=== PATIENT | female | born 1930 | race Caucasian/White ===

== ENCOUNTER 2017-07-22 19:00 | Inpatient (IN) | payer MEDICARE, OTHER ==
[~2017-07-22] VITALS: Ht 157.5 cm; Wt 68.0 kg
[~2017-07-22 19:00] MED LIST: ALEN70TA30 PO; BENA5TAB2 PO; KETO75CA PO; MECL12.568 PO; METF500T4 PO; METH500T8 PO; METO-429 PO; OMEP20CA16 PO
[2017-07-22 19:08] VITALS: Ht 157.5 cm; Wt 68.0 kg
[2017-07-22] MEDS ORDERED: SOD CHLORIDE 0.9% 1,000 ML IV STA (19:37)
--- NOTE | 2017-07-22 20:00 | ERA ---
ER Documentation Chief Complaint Date/Time DATE: 07/22/17 TIME: 19:59 Chief Complaint DIZZINESS X 2 DAYS, HEADACHE, DENIES N/V, PER DAUGHTER ELEV BLOOD GLUCOSE HPI This is an 86-year-old female history of ono-ewadjsq-nshruovek diabetes who presents with multiple complaints over the last 48 hours. Daughter describes that the patient is describing dizziness. She describes it as the patient having ataxic gait and feeling weak and almost collapsing over the last 48 hours. She denies any vertigo. No chest pain or shortness of breath. The patient does describe some clumsiness of the right hand. She denies any fevers chills chest pain or shortness of breath. Glucose values have been elevated. ROS All systems reviewed and are negative except as per history of present illness. Medications Home Meds Reported Medications Ketoprofen (Ketoprofen) 75 Mg Capsule, 75 MG PO BID 01/28/12 Methocarbamol* (Methocarbamol*) 500 Mg Tablet, 500 MG PO BID Y 01/28/12 Meclizine Hcl (Meclizine Hcl) 12.5 Mg Tablet, 12.5 MG PO Q8 Y PRN Q8 HRS FOR DIZZINES 01/28/12 Metoprolol Tartrate* (Lopressor*) 50 Mg Tablet, 50 MG PO BID 01/28/12 Alendronate Sodium* (Fosamax*) 70 Mg Tablet, 70 MG PO QWEEKLY 01/28/12 Benazepril Hcl* (Benazepril Hcl*) 5 Mg Tablet, 5 MG PO HS 01/28/12 Omeprazole* (Omeprazole*) 20 Mg Capsule.dr, 20 MG PO DAILY 01/28/12 Metformin* (Glucophage*) 500 Mg Tab, 500 MG PO DAILY 01/28/12 Allergies Allergies: Coded Allergies: No Known Allergy (Unverified , 01/28/12) NKA/NOR/RN MS3 01/27 1257 PMhx/Soc Hx Substance Use: No FmHx Family History: No diabetes Physical Exam Vitals Vital Signs Date Time Temp Pulse Resp B/P Pulse Ox O2 Delivery O2 Flow Rate FiO2 07/22/17 19:08 99.0 79 18 172/77 95 Physical Exam General: Well developed, well nourished, no acute distress Head: Normocephalic, atraumatic Eyes: Pupils equally reactive, EOM intact ENT: Moist mucous membranes Neck: Supple, no lymphadenopathy Respiratory: Lungs clear bilaterally, no distress Cardiovascular: RRR, no murmurs, rubs, or gallops Abdominal: Soft, non-tender, non-distended, no peritoneal signs : Deferred MSK: No edema, no unilateral swelling, 5/5 strength Neurologic: Alert and oriented, moving all extremities, normal speech, no focal weakness, no cerebellar signs, normal rapid alternating movements Skin: No rash Psych: Normal mood Result Diagram: 07/22/17195507/22/171955 Results 24 hrs Laboratory Tests Test 07/22/17 19:15 07/22/17 19:53 07/22/17 19:56 07/22/17 20:27 Bedside Glucose 119mg/dL 128mg/dL White Blood Count 8.010^3/ul Red Blood Count 4.5310^6/ul Hemoglobin 13.6g/dl Hematocrit 41.1% Mean Corpuscular Volume 90.7fl Mean Corpuscular Hemoglobin 30.0pg Mean Corpuscular Hemoglobin Concent 33.1g/dl Red Cell Distribution Width 14.0% Platelet Count 05115^3/UL Mean Platelet Volume 12.4fl Neutrophils % 47.9% Lymphocytes % 41.2% Monocytes % 8.7% Eosinophils % 1.8% Basophils % 0.3% Nucleated Red Blood Cells % 0.0/100WBC Neutrophils # 3.810^3/ul Lymphocytes # 3.310^3/ul Monocytes # 0.710^3/ul Eosinophils # 0.110^3/ul Basophils # 0.010^3/ul Nucleated Red Blood Cells # 0.010^3/ul Sodium Level 138mmol/L Potassium Level 4.2mmol/L Chloride Level 102mmol/L Carbon Dioxide Level 29mmol/L Anion Gap 11 Blood Urea Nitrogen 16mg/dl Creatinine 0.62mg/dl Glucose Level 110mg/dl Hemoglobin A1c 6.5% Calcium Level 9.0mg/dl Troponin I < 0.012ng/ml Urine Opiates Screen Negative Urine Barbiturates Negative Urine Amphetamines Screen Negative Urine Benzodiazepines Screen Negative Urine Cocaine Screen Negative Urine Cannabinoids Negative Current Medications Medications (Trade) Dose Ordered Sig/Brain Route PRN Reason Start Time Stop Time Status Last Admin Dose Admin Sodium Chloride (NS) 1,000 ml @ 1,000 mls/hr Q1H STAT IV 07/22/17 19:37 07/22/17 20:36 DC 07/22/17 20:22 Ondansetron HCl (Zofran Inj) 4 mg ER BRIDGE PRN IV NAUSEA AND/OR VOMITING 07/22/17 21:30 07/23/17 21:29 Acetaminophen (Tylenol Tab) 650 mg ER BRIDGE PRN PO MILD PAIN/FEVER 07/22/17 21:30 07/23/17 21:29 Procedures/MDM EKG, MONITORS, & DIAGNOSTIC IMAGING: EKG: I reviewed and interpreted a 12-lead EKG. Rhythm: Normal sinus rhythm Ectopy: None Intervals: No abnormalities ST segments: No elevations or depressions T waves: No contiguous inversions Chest x-ray: I reviewed and interpreted a 1 view of the chest Mediastinum: No enlargement Cardiac silhouette: No cardiomegaly Airspace: Clear lung hines bilaterally without evidence of pneumothorax Bones: No evidence of fracture CT brain: IMPRESSION: 1. No acute intracranial abnormality. No intracranial hemorrhage, extra-axial fluid collection, mass lesion or hydrocephalous. 2. Mild peripheral and central cerebral volume loss. 3. Mild periventricular and subcortical white matter hypodensity, likely related to chronic microangiopathic changes. 4. No CT evidence of infarct at this time. If clinical concern for infarct, MRI is recommended for further evaluation. RPTAT: HGAS LAB INTERPRETATION: No leukocytosis, negative troponin MEDICAL DECISION MAKING: The patient presents with ataxia, clumsiness of the right hand for 48 hours. This is concerning for possible subacute stroke. The patient also has hyperglycemia. The patient will benefit from laboratory testing, CT imaging and inpatient hospitalization for further workup and evaluation of potential stroke. MRI brain indicated. ER COURSE: The patient continues to be well-appearing and asymptomatic here in the emergency room. Her CT imaging is negative. The patient's EKG and troponin are negative. Electrolytes are normal. No evidence of DKA. Inpatient hospitalization for further management would be appropriate. Aspirin provided. I kept the patient and/or family informed of laboratory and diagnostic imaging results throughout the emergency room course. DISPOSITION PLAN: Telemetry admission for management and evaluation of potential stroke CONSULTATION: Accepting care team and consultations: I discussed the current laboratory data, diagnostic imaging and emergency care provided. Admitting team: Dr Haynes Admitting team indication: Insurance directed Departure Diagnosis: Primary Impression: Ataxia Additional Impression: Generalized weakness Condition: Stable ZOILA OLIVIER MD Jul 22, 2017 20:00
[2017-07-22 20:33] LABS: BASOPHILS % 0.3 % (0.0-2.0); EOSINOPHILS # 0.1 10^3/ul (0.0-0.5); EOSINOPHILS % 1.8 % (0.0-7.0); HEMATOCRIT 41.1 % (37.0-47.0); HEMOGLOBIN 13.6 g/dl (12.0-16.0); LYMPHOCYTES # 3.3 10^3/ul (0.8-2.9); LYMPHOCYTES % 41.2 % (15.0-51.0); MEAN CORPUSCULAR HGB CONC 33.1 g/dl (32.0-37.0); MEAN CORPUSCULAR VOLUME 90.7 fl (82.0-101.0); MEAN PLATELET VOLUME 12.4 fl (7.4-10.4); MONOCYTE # 0.7 10^3/ul (0.3-0.9); MONOCYTES % 8.7 % (0.0-11.0); NEUTROPHIL # 3.8 10^3/ul (1.6-7.5); NEUTROPHILS % 47.9 % (39.0-77.0); PLATELET COUNT 145 10^3/UL (140-415); RED BLOOD COUNT 4.53 10^6/ul (4.20-5.40)
--- NOTE | 2017-07-22 20:47 | RADRPT ---
AMENDMENT: 07/22/2017 8:50:39 PM Earl Luna M.D Addendum: The above findings were discussed with Patient's physician Vidal Matute by telephone on 07/22/20 8:49:29 PM. PROCEDURE: CT Head without. CLINICAL INDICATION: Possible stroke. TECHNIQUE: The study was performed utilizing a multi-slice, multidetector CT scanner. Direct spira l 1 mm axial sections were obtained through the head without the use of intravenous contrast materia l. 1 or more of the following dose reduction techniques were utilized: Automated exposure control, adjustment of the mA and/or kV according to patient's size, iterative reconstruction technique. Co lorrie and sagittal reformations were obtained. The images were reviewed on a PACS workstation. RADIATION DOSE: CTDIvol: 44.6 mGyDLP: 720.2 mGy-cm COMPARISON: No prior studies are available for comparison. FINDINGS: There is no intracranial hemorrhage, extra-axial fluid collection, mass lesion, midline shift or hyd rocephalus. There is mild prominence of the cerebral sulci, lateral and third ventricles. There is mild periventricular and subcortical white matter hypodensity. There is mild arteriosclerotic calc ification of the parasellar internal carotid arteries. There is pneumatization of the bilateral pet israel apices without evidence of inflammatory changes, normal variant. The rowley-white matter differen tiation is preserved. The basal cisterns are patent. The midline structures are intact. The orbit s, calvarium and extracranial soft tissues are normal in appearance. The visualized paranasal sinuse s, mastoid air cells and middle ear cavities are normally aerated. IMPRESSION: 1. No acute intracranial abnormality. No intracranial hemorrhage, extra-axial fluid collection, ma ss lesion or hydrocephalous. 2. Mild peripheral and central cerebral volume loss. 3. Mild periventricular and subcortical white matter hypodensity, likely related to chronic microan giopathic changes. 4. No CT evidence of infarct at this time. If clinical concern for infarct, MRI is recommended for further evaluation. RPTAT: HGAS .Thor Luna MD, MD Date Time Electronically viewed and signed by .Thor Luna MD, on 07/22/2017 20:50 .S/
--- NOTE | 2017-07-22 20:47 | RADRPT ---
PROCEDURE: XR Chest. CLINICAL INDICATION: Possible stroke. TECHNIQUE: AP portable views of the chest were obtained. COMPARISON: None available FINDINGS: The cardiomediastinal silhouette is within normal limits. There is moderate atherosclerosis of the t horacic aorta without evidence of aneurysm formation. The lungs are clear. No signs of pleural flui d or pneumothorax are seen. There are mild degenerative changes of the thoracic spine. The vertebra l body heights are maintained. The soft tissues are unremarkable. IMPRESSION: 1. No evidence for active cardiopulmonary disease. 2. Mild atherosclerosis of the thoracic aorta. RPTAT: HGAS .Thor Luna MD, MD Date Time Electronically viewed and signed by .Thor Luna MD, MD on 07/22/2017 20:47 .S/
[2017-07-22 20:54] LABS: ANION GAP 11 (8-16); BLOOD UREA NITROGEN 16 mg/dl (7-20); CARBON DIOXIDE 29 mmol/L (21-31); CHLORIDE 102 mmol/L (97-110); CREATININE 0.62 mg/dl (0.44-1.00); GLUCOSE 110 mg/dl (70-220); POTASSIUM 4.2 mmol/L (3.5-5.1); SODIUM 138 mmol/L (135-144)
[2017-07-22 21:06] LABS: TROPONIN-I < 0.012 ng/ml (0.00-0.12)
[2017-07-22 21:08] LABS: BARBITURATES Negative (NEGATIVE); BENZODIAZEPINES Negative (NEGATIVE); CANNABINOIDS Negative (NEGATIVE); COCAINE Negative (NEGATIVE); OPIATES Negative (NEGATIVE)
[2017-07-22 21:20] LABS: ADD UMIC YES; UR AMORPHOUS CRYSTAL FEW /HPF (NONE SEEN); UR ASCORBIC ACID NEGATIVE (NEGATIVE); UR BACTERIA FEW /HPF (NONE SEEN); UR BILIRUBIN (Dip) NEGATIVE (NEGATIVE); UR BLOOD (Dip) NEGATIVE (NEGATIVE); UR CLARITY SLIGHTLY CLOUDY (CLEAR); UR COLOR YELLOW (YELLOW); UR GLUCOSE (Dip) NEGATIVE (NEGATIVE); UR KETONES (Dip) NEGATIVE (NEGATIVE); UR LEUKOCYTE ESTERASE (Dip) 3+ Leu/ul (NEGATIVE); UR MUCUS FEW /HPF (NONE SEEN); UR NITRITE (Dip) NEGATIVE (NEGATIVE); UR RBC 2 /HPF (0-5); UR SPECIFIC GRAVITY (Dip) 1.009 (1.003-1.030); UR SQUAMOUS EPITHELIAL CELL FEW /HPF (FEW); UR TOTAL PROTEIN (Dip) NEGATIVE (NEGATIVE); UR UROBILINOGEN (Dip) NEGATIVE (NEGATIVE)
[2017-07-22] MEDS ORDERED: ASPIRIN 81 MG TAB PO ONE (21:30)
[2017-07-22] MEDS ORDERED: ONDANSETRON 4 MG INJ IV PRN (21:30)
[2017-07-22] MEDS ORDERED: ACETAMINOPHEN 325 MG TAB PO PRN (21:30)
[2017-07-22 21:38] LABS: PARTIAL THROMBOPLASTIN TIME 27.4 Sec (25.0-35.0)
[2017-07-22] MEDS ORDERED: CEPHALEXIN 500 MG CAP PO ONE (22:00)
[2017-07-22 22:10] LABS: INR 1.09; PROTIME 14.1 Sec (12.2-14.2); PT RATIO 1.1
[2017-07-22] MEDS ORDERED: ALPR0.254 PO (22:11)
[2017-07-22] MEDS ORDERED: BACI1CAP6 PO (22:11)
[2017-07-22] MEDS ORDERED: ZOLP5TAB7 PO (22:11)
[2017-07-22] MEDS ORDERED: MULT-853 PO (22:11)
[2017-07-22] MEDS ORDERED: DEXTROSE 50% 50 ML SYRINGE IV PRN ×2 (23:30)
[2017-07-22] MEDS ORDERED: GLUCAGON 1 MG INJ IM PRN (23:30)
[2017-07-22] MEDS ORDERED: GLUCOSE GEL 15 GRAM TUBE PO PRN ×2 (23:30)
[2017-07-22] MEDS ORDERED: GLUCOSE GEL 15 GRAM TUBE BUCCAL PRN (23:30)
[2017-07-22 23:33] VITALS: BP 159/72; RESP 18
[2017-07-23] VITALS (12 sets, daily range): BP systolic 127–143; BP diastolic 64–73; PULSE 71–79; RESP 18–19
[2017-07-23] MEDS ORDERED: ACCU-CHEK XX SCH (02:00)
[2017-07-23] MEDS: ACCU-CHEK XX SCH (02:00)
[2017-07-23] MEDS: INSULIN ASPART [NOVOLOG] 3 ML PEN SC SCH ×4 (08:00→20:41)
[2017-07-23 08:16] LABS: BASOPHILS % 0.5 % (0.0-2.0); EOSINOPHILS # 0.1 10^3/ul (0.0-0.5); HEMATOCRIT 42.7 % (37.0-47.0); HEMOGLOBIN 13.7 g/dl (12.0-16.0); LYMPHOCYTES % 45.6 % (15.0-51.0); MEAN CORPUSCULAR HEMOGLOBIN 29.3 pg (29.0-33.0); MEAN CORPUSCULAR HGB CONC 32.1 g/dl (32.0-37.0); MEAN CORPUSCULAR VOLUME 91.4 fl (82.0-101.0); MEAN PLATELET VOLUME 11.6 fl (7.4-10.4); MONOCYTE # 0.6 10^3/ul (0.3-0.9); MONOCYTES % 8.4 % (0.0-11.0); NEUTROPHIL # 2.9 10^3/ul (1.6-7.5); NEUTROPHILS % 43.3 % (39.0-77.0); PLATELET COUNT 145 10^3/UL (140-415); RED BLOOD COUNT 4.67 10^6/ul (4.20-5.40); RED CELL DISTRIBUTION WIDTH 13.8 % (11.5-14.5); WHITE BLOOD COUNT 6.6 10^3/ul (4.8-10.8)
[2017-07-23 08:32] LABS: CALCIUM 8.7 mg/dl (8.4-10.2); CHOL/HDL RATIO 5.3 RATIO; CREATININE 0.6 mg/dl (0.44-1.00); POTASSIUM 4.4 mmol/L (3.5-5.1)
[2017-07-23] MEDS: HEPARIN 5,000 UNIT/0.5 ML VIAL SC SCH ×2 (09:27→20:49)
[2017-07-23] MEDS: ASPIRIN 81 MG TAB PO SCH (09:27)
[2017-07-23] MEDS ORDERED: ZOLPIDEM 5 MG TAB PO PRN (10:00)
[2017-07-23] MEDS ORDERED: MECLIZINE 12.5 MG TAB PO PRN (10:00)
--- NOTE | 2017-07-23 10:28 | HP ---
Date/Time of Note Date/Time of Note DATE: 07/23/17 TIME: 10:20 Assessment/Plan VTE Prophylaxis VTE Prophylaxis Intervention: heparin Lines/Catheters IV [facility]from [facility] Saline Lock Urinary Cath still in place: No Assessment/Plan Assessment/Plan 1. Generalized weakness -Currently this appears to have resolved because of my physical examination patient has 5 out of 5 strength in both upper and lower extremities and there was no decreased sensation that I noted. Of note patient did report her right hand was more weaker than the rest of her extremities but I did not appreciate that on my physical exam. -Plan is to rule out stroke. Obtain MRI of the brain and 2D echo. Given carotid Doppler ultrasound from 2011 that showed no hemodynamically significant stenosis, I will not repeat at this point. Additional imaging was CT or MR angiogram of the head and neck as needed - She will be placed on aspirin, statin -Physical therapy evaluation 2. Hypertension -Continue home medications adjustment as needed 3. Type 2 diabetes -Insulin while in-house HPI/ROS Admit Date/Time Admit Date/Time Jul 22, 2017 at 21:13 Hx of Present Illness This is an 86-year-old female with a history of hypertension and diabetes who was brought to the ER for generalized weakness. Patient is accompanied by her daughter who was at the bedside and provided history. Per daughter, patient's have been able to take care of herself and was fully independent until 2 days ago. About 2 days ago, patient started complaining of feeling weak and had difficulty with walking requiring assistance. She said her weakness is generalized, including both bilateral upper and bilateral lower extremities. On further questioning however, she did report her right hand was more numb and weak as compared to the rest of her extremities. Did report some headache but denied visual disturbance, chest pain, shortness of breath, lightheadedness, seizure-like activity. When she presented to the ER, head CT was negative for any acute processes. Basic labs within acceptable range and blood pressure was not severely elevated upon presentation. Of note patient was admitted here for altered mentation in 2011 and at that time she had an MRI of the brain which was normal and carotid Doppler ultrasound was also without hemodynamically significant stenosis. PMH/Family/Social Social History Smoking Status: Never smoker Exam/Review of Systems Vital Signs Vitals Vital Signs Date Time Temp Pulse Resp B/P Pulse Ox O2 Delivery O2 Flow Rate FiO2 07/23/17 08:43 74 07/23/17 08:00 97.8 18 143/72 92 07/22/17 21:00 Room Air Intake and Output 07/22/17 07/22/17 07/23/17 15:00 23:00 07:00 Intake Total 500 ml Balance 500 ml Exam Constitutional: alert, oriented, well developed Head: atraumatic, normocephalic Eyes: EOMI, PERRL Respiratory: clear to auscultation, normal air movement Cardiovascular: nl pulses, regular rate and rhythm Gastrointestinal: non-tender, soft Extremities: normal pulses Neurological: nl speech, nl strength Labs Result Diagram: 07/23/17 0645 07/23/17 0645 Medications Medications Current Medications Aspirin (Aspirin) 81 mg DAILY PO Last administered on 07/23/17 09:27; Admin Dose 81 MG; Start 07/23/17 at 09:00 Diagnostic Test (Pha) (Accu-Chek) 1 ea 02 XX ; Start 07/23/17 at 02:00 Insulin Glargine (Lantus) 10 unit QHS SC ; Start 07/23/17 at 21:00 Heparin Sodium (Porcine) (Heparin (5000 Units/0.5 ml)) 5,000 unit Q12 SC Last administered on 07/23/17 09:27; Admin Dose 5,000 UNIT; Start 07/23/17 at 09:00 Miscellaneous Information 1 ea NOTE XX ; Start 07/22/17 at 23:30 Glucose (Glutose) 15 gm Q15M PRN PO DECREASED GLUCOSE; Start 07/22/17 at 23:30 Glucose (Glutose) 22.5 gm Q15M PRN PO DECREASED GLUCOSE; Start 07/22/17 at 23: 30 Dextrose (D50w Syringe) 25 ml Q15M PRN IV DECREASED GLUCOSE; Start 07/22/17 at 23:30 Dextrose (D50w Syringe) 50 ml Q15M PRN IV DECREASED GLUCOSE; Start 07/22/17 at 23:30 Glucagon (Glucagen) 1 mg Q15M PRN IM DECREASED GLUCOSE; Start 07/22/17 at 23:30 Glucose (Glutose) 15 gm Q15M PRN BUCCAL DECREASED GLUCOSE; Start 07/22/17 at 23 :30 Alprazolam (Xanax) 0.25 mg Q12 PO ; Start 07/23/17 at 21:00 Benazepril HCl (Lotensin) 5 mg HS PO ; Start 07/23/17 at 21:00 Meclizine HCl (Antivert) 12.5 mg Q8H PRN PO vertigo; Start 07/23/17 at 10:00 Metoprolol Tartrate (Lopressor) 50 mg BID PO ; Start 07/23/17 at 21:00 Zolpidem Tartrate (Ambien) 5 mg QHS PRN PO INSOMNIA; Start 07/23/17 at 10:00 Atorvastatin Calcium (Lipitor) 40 mg HS PO ; Start 07/23/17 at 21:00 ANGEL MCNAIR MD Jul 23, 2017 10:28
--- NOTE | 2017-07-23 14:36 | RADRPT ---
Echocardiogram Report Patient Name: STEPHON THOMPSON Gender: Female Date: 1930 Study Date: 23-Jul-2017 Cephalometric Technician: Oren Hartman [facility] Location: [id number] Ref. Physician: ANGEL MCNAIR Quality: Technically Difficult Study Procedures: Transthoracic echocardiogram with complete 2D, M-Mode, and doppler examination. Indications: weakness. 2D/M Mode Doppler Measurement Value Normal Ranges Measurement Value Normal Ranges LVIDd 2D 3.9 3.5 - 5.6 cm AV Peak Harry 1.7 m/sec LVIDs 2D 2.6 2.1 - 4.1 cm AV Peak PG 12.0 mmHg FS 2D 33.7 % LVOT Peak Harry 1.0 m/sec LVPWd 2D 1.1 0.6 - 1.1 cm LVOT Peak PG 4.0 mmHg IVSd 2D 1.1 0.6 - 1.1 cm MV E Peak Harry 0.6 m/sec IVS/LVPW 2D 1.0 MV A Peak Harry 1.0 m/sec AoR Diam 2D 2.5 2.0 - 3.7 cm MV E/A 0.6 LA/Ao 2D 1 0 - 1 MV Decel Time 289 msec EDV 2D 57.5 cm3 MV E/A 0.6 ESV 2D 16.8 cm3 TR Peak Harry 2.6 m/sec LA Dimen 2D 2.9 2.3 - 4.0 cm TR Peak PG 28.0 mmHg RVSP 32.0 mmHg Findings Left Ventricle: Normal left ventricular systolic function. Normal left ventricular cavity size. Mild concentric left ventricular hypertrophy. Ejection fraction is visually estimated at 6065 %. Tissue Doppler/Mitral Doppler indices are consistent with impaired relaxation (Stage I diastolic dysfunction). Right Ventricle: Normal right ventricular size. Normal right ventricular systolic function. Left Atrium: The left atrium is normal in size. Right Atrium: The right atrium is normal in size. Mitral Valve: Normal appearance and function of the mitral valve with trace physiologic regurgitation. Aortic Valve: No significant aortic stenosis or insufficiency. Aortic cusps appear mildly calcified. Tricuspid Valve: Normal appearance of the tricuspid valve. Estimated peak PA systolic pressure 32 mmHg. There is mild tricuspid regurgitation. Pulmonic Valve: Normal pulmonic valve appearance. Pericardium: Normal pericardium with no significant pericardial effusion. Aorta: Normal aortic root. IVC: Normal size and normal respiratory collapse consistent with normal right atrial pressure. Conclusions 1.The left ventricle is normal in size and systolic function. 2.Estimated left ventricular ejection fraction of 60-65%. 3.Mild concentric left ventricular hypertrophy. Grade 1 diastolic dysfunction. Electronically Signed By: Bobby Magallon 23-Jul-2017 14:35:33 -0700 Patient Name: STEPHON THOMPSON Study Date: 23-Jul-2017 [id number]
--- NOTE | 2017-07-23 15:28 | RADRPT ---
PROCEDURE: MRI Brain without contrast. CLINICAL INDICATION: Ataxia, weakness. TECHNIQUE: An MRI of the brain was performed utilizing the following sequences: Sagittal and axial T1 weighted, axial T2 weighted, axial diffusion weighted with ADC mapping, coronal GRE, and axial F LAIR. COMPARISON: Brain CT 07/22/2017. FINDINGS: No diffusion weighted abnormalities are seen to suggest the presence of acute ischemia or recent inf arct. No hypointense signal abnormalities are seen on the GRE images to suggest the presence of blo od degradation products. There is no evidence of intracranial hemorrhage, mass effect, or midline s hift. No extra-axial fluid collections are seen. The ventricles and sulci are mildly to moderately e nlarged indicative of volume loss. There are mild foci of T2 FLAIR hyperintensity in the periventricular, deep, and subcortical white m atter, which are nonspecific in etiology but likely reflect chronic small vessel ischemic changes. No abnormal intracranial vascular flow void is noted. The visualized paranasal sinuses demonstrate m ild scattered mucosal thickening or pronounced in ethmoid air cells and maxillary sinuses. There is thinning of bilateral lens indicative of prior lens replacement. IMPRESSION: 1. No acute intracranial hemorrhage, infarction or mass. 2. Mild chronic small vessel ischemic changes. 3. Mild to moderate generalized cerebral volume loss. RPTAT: HH .Jennifer Anglin MD, Date Time Electronically viewed and signed by .Jennifer Anglin MD, MD on 07/23/2017 15:28 .N/
--- NOTE | 2017-07-23 15:30 | PN ---
Date/Time of Note Date/Time of Note DATE: 07/23/17 TIME: 15:24 Assessment/Plan Lines/Catheters IV [facility] Saline Lock Urinary Cath still in place: No Assessment/Plan Chief Complaint/Hosp Course Assessment and plan 1. Reported weakness. MRI of the brain is pending. Rule out CVA. Follow-up on 2D echo. Of note patient did have carotid Doppler ultrasound done on 2011 that showed no hemodynamically significant stenosis. Will monitor for now. Continue on antiplatelet and statin medication. Physical therapy to follow. Neurologist follow-up as well. 2. Essential hypertension. Continue antihypertensives and adjust needed. 3. Diabetes. Continue insulin regimen. Disposition and plan. Physical therapy to follow. Follow-up on brain imaging. Neurologist to follow as well. Discussed plan with Problems: Subjective 24 Hr Interval Summary Free Text/Dictation less reported weakness on right upper extremity. Exam/Review of Systems Vital Signs Vitals Vital Signs Date Time Temp Pulse Resp B/P Pulse Ox O2 Delivery O2 Flow Rate FiO2 07/23/17 12:00 79 07/23/17 11:57 97.9 18 130/69 97 07/22/17 21:00 Room Air Intake and Output 07/22/17 07/22/17 07/23/17 15:00 23:00 07:00 Intake Total 500 ml Balance 500 ml Exam Constitutional: alert, oriented Psych: anxiety Respiratory: clear to auscultation, normal air movement Cardiovascular: regular rate and rhythm Gastrointestinal: non-tender, soft Musculoskeletal: other (pain on palpation of bilateral lower extremities. patient reports hx arthritis ) Neurological: WIRE BASKET [employer]KER II-XII intact, nl mental status, nl speech Skin: nl turgor Results Result Diagram: 07/23/17 0645 07/23/17 0645 Results 24 hrs Laboratory Tests Test 07/22/17 19:15 07/22/17 19:53 07/22/17 19:56 07/22/17 20:27 Bedside Glucose 119 128 White Blood Count 8.0 Red Blood Count 4.53 Hemoglobin 13.6 Hematocrit 41.1 Mean Corpuscular Volume 90.7 Mean Corpuscular Hemoglobin 30.0 Mean Corpuscular Hemoglobin Concent 33.1 Red Cell Distribution Width 14.0 Platelet Count 145 Mean Platelet Volume 12.4 H Neutrophils % 47.9 Lymphocytes % 41.2 Monocytes % 8.7 Eosinophils % 1.8 Basophils % 0.3 Nucleated Red Blood Cells % 0.0 Neutrophils # 3.8 Lymphocytes # 3.3 H Monocytes # 0.7 Eosinophils # 0.1 Basophils # 0.0 Nucleated Red Blood Cells # 0.0 Sodium Level 138 Potassium Level 4.2 Chloride Level 102 Carbon Dioxide Level 29 Anion Gap 11 Blood Urea Nitrogen 16 Creatinine 0.62 Glucose Level 110 Hemoglobin A1c 6.5 H Calcium Level 9.0 Troponin I < 0.012 Urine Color YELLOW Urine Clarity SLIGHTLY CLOUDY A Urine pH 8.0 Urine Specific Faison 1.009 Urine Ketones NEGATIVE Urine Nitrite NEGATIVE Urine Bilirubin NEGATIVE Urine Urobilinogen NEGATIVE Urine Leukocyte Esterase 3+ H Urine Microscopic RBC 2 Urine Microscopic WBC 75 H Urine Squamous Epithelial Cells FEW Urine Amorphous Crystals FEW A Urine Bacteria FEW A Urine Mucus FEW A Urine Hemoglobin NEGATIVE Urine Glucose NEGATIVE Urine Total Protein NEGATIVE Urine Opiates Screen Negative Urine Barbiturates Negative Urine Amphetamines Screen Negative Urine Benzodiazepines Screen Negative Urine Cocaine Screen Negative Urine Cannabinoids Negative Test 07/22/17 20:50 07/23/17 02:02 07/23/17 06:45 07/23/17 08:02 Prothrombin Time 14.1 Prothrombin Time Ratio 1.1 INR International Normalized Ratio 1.09 Activated Partial Thromboplast Time 27.4 Bedside Glucose 140 119 White Blood Count 6.6 Red Blood Count 4.67 Hemoglobin 13.7 Hematocrit 42.7 Mean Corpuscular Volume 91.4 Mean Corpuscular Hemoglobin 29.3 Mean Corpuscular Hemoglobin Concent 32.1 Red Cell Distribution Width 13.8 Platelet Count 145 Mean Platelet Volume 11.6 H Neutrophils % 43.3 Lymphocytes % 45.6 Monocytes % 8.4 Eosinophils % 2.0 Basophils % 0.5 Nucleated Red Blood Cells % 0.0 Neutrophils # 2.9 Lymphocytes # 3.0 H Monocytes # 0.6 Eosinophils # 0.1 Basophils # 0.0 Nucleated Red Blood Cells # 0.0 Sodium Level 140 Potassium Level 4.4 Chloride Level 106 Carbon Dioxide Level 27 Anion Gap 11 Blood Urea Nitrogen 15 Creatinine 0.60 Glucose Level 110 Hemoglobin A1c 6.4 H Calcium Level 8.7 Triglycerides Level 210 H Cholesterol Level 165 LDL Cholesterol, Calculated 92 HDL Cholesterol 31 L Cholesterol/HDL Ratio 5.3 Test 07/23/17 12:11 Bedside Glucose 112 Medications Medications Current Medications Aspirin (Aspirin) 81 mg DAILY PO Last administered on 07/23/17 09:27; Admin Dose 81 MG; Start 07/23/17 at 09:00 Diagnostic Test (Pha) (Accu-Chek) 1 ea 02 XX ; Start 07/23/17 at 02:00 Insulin Glargine (Lantus) 10 unit QHS SC ; Start 07/23/17 at 21:00 Heparin Sodium (Porcine) (Heparin (5000 Units/0.5 ml)) 5,000 unit Q12 SC Last administered on 07/23/17 09:27; Admin Dose 5,000 UNIT; Start 07/23/17 at 09:00 Miscellaneous Information 1 ea NOTE XX ; Start 07/22/17 at 23:30 Glucose (Glutose) 15 gm Q15M PRN PO DECREASED GLUCOSE; Start 07/22/17 at 23:30 Glucose (Glutose) 22.5 gm Q15M PRN PO DECREASED GLUCOSE; Start 07/22/17 at 23: 30 Dextrose (D50w Syringe) 25 ml Q15M PRN IV DECREASED GLUCOSE; Start 07/22/17 at 23:30 Dextrose (D50w Syringe) 50 ml Q15M PRN IV DECREASED GLUCOSE; Start 07/22/17 at 23:30 Glucagon (Glucagen) 1 mg Q15M PRN IM DECREASED GLUCOSE; Start 07/22/17 at 23:30 Glucose (Glutose) 15 gm Q15M PRN BUCCAL DECREASED GLUCOSE; Start 07/22/17 at 23 :30 Alprazolam (Xanax) 0.25 mg Q12 PO ; Start 07/23/17 at 21:00 Benazepril HCl (Lotensin) 5 mg HS PO ; Start 07/23/17 at 21:00 Meclizine HCl (Antivert) 12.5 mg Q8H PRN PO vertigo; Start 07/23/17 at 10:00 Metoprolol Tartrate (Lopressor) 50 mg BID PO ; Start 07/23/17 at 21:00 Zolpidem Tartrate (Ambien) 5 mg QHS PRN PO INSOMNIA; Start 07/23/17 at 10:00 Atorvastatin Calcium (Lipitor) 40 mg HS PO ; Start 07/23/17 at 21:00 TU OCHOA Jul 23, 2017 15:30
[2017-07-23] MEDS ORDERED: ACETAMINOPHEN 325 MG TAB PO PRN (16:00)
[2017-07-23] MEDS: ALPRAZOLAM 0.25 MG TAB PO SCH (20:40)
[2017-07-23] MEDS: METOPROLOL 50 MG TAB PO SCH (20:40)
[2017-07-23] MEDS ORDERED: BENAZEPRIL 5 MG TAB PO SCH (21:00)
[2017-07-23] MEDS ORDERED: ATORVASTATIN 20 MG TAB PO SCH (21:00)
[2017-07-23] MEDS ORDERED: ATORVASTATIN 40 MG TAB PO SCH (21:00)
[2017-07-23] MEDS ORDERED: INSULIN GLARGINE [LANtus] 3 ML PEN SC SCH (21:00)
[2017-07-24] VITALS (7 sets, daily range): BP systolic 115–144; BP diastolic 66–84; PULSE 56–72; RESP 18
--- NOTE | 2017-07-24 01:45 | CONS ---
DATE OF ADMISSION: 07/22/2017 DATE OF CONSULTATION: 07/23/2017 Thank you for kind referral for reason of generalized weakness, possible stroke. The patient is an 86-year-old lady with a history of hypertension and diabetes, who came in with couple days of generalized weakness, including upper and lower extremities. According to history and physical examination note, right hand was a little more numb compared to the rest of the extremities. The patient was found to have a urinary tract infection. She has MRI of the brain, which did not show any acute abnormality. All of her symptoms resolved. LABORATORY: Shows a normal CBC. Basic metabolic panel: BUN 16, creatinine 0.62. Hemoglobin A1c was 6.5. Troponin is negative. Triglycerides 210, cholesterol 165, LDL 92. Normal PT and PTT. Tox screen was negative for drugs. Urinalysis: 3+ leukocyte esterase and 75 WBCs. MEDICATION: Prior to admission: 1. Donezepil. 2. Metoprolol. 3. Alprazolam. 4. Ketoprofen. 5. Zolpidem. 6. Meclizine. 7. Metformin. 8. Multivitamins. CURRENT MEDICATIONS: 1. Insulin. 2. Xanax. 3. Lotensin. 4. Lopressor. 5. Lipitor 40 mg. 6. Antivert. 7. Aspirin 81 mg. SOCIAL HISTORY: No alcohol, tobacco, or drug use. FAMILY HISTORY: Noncontributory. REVIEW OF SYSTEMS: Pertinent positives are included in the above history of present illness. PHYSICAL EXAMINATION: VITAL SIGNS: Temperature 97.8, pulse 75, respirations 18, blood pressure 128/64. GENERAL: Not in acute distress, lying in bed. HEENT: Normocephalic and atraumatic head. NECK: No carotid bruits. No thyromegaly. LUNGS: Clear to auscultation bilaterally. HEART: Normal rhythm and sounds. ABDOMEN: Soft and nontender. EXTREMITIES: No cyanosis, clubbing, or edema. NEURO: She is awake, alert, and oriented x3 with fluent speech. Cranial nerve examination shows intact visual hines bilaterally. Pupils are round and reactive to light from 3-2 mm bilaterally. Extraocular movements intact without nystagmus. Symmetrical face. Preserved facial strength and sensation. Tongue is in midline. Palate elevates symmetrically. Motor strength examination shows normal bulk, tone, and strength in all extremities. No focal weakness. Sensory examination grossly intact to light touch and pain. Deep tendon reflexes 2+ upper extremities and knees. Absent ankle jerks. Downgoing toes bilaterally. Coordination preserved on [id number] testing. No dysmetria or tremor. Gait was not assessed. IMPRESSION AND PLAN: Generalized weakness for a couple of days. Most likely related to toxic metabolic causes such as urinary tract infection. I do not think that generalized weakness could be reflective of any strokes given bilateral character. As for reported right hand with numbness. I do not appreciate it now. Given the risk factors for stroke, I think it is okay to proceed with stroke workup with carotid ultrasounds. EKG sinus rhythm. Please keep patient normotensive, euglycemic. Continue aspirin and statin. The patient is not on any antibiotics at least currently. I will leave it to primary to decide which one to use for urinary tract infection. Though in the emergency room, the patient received Keflex for a urinary tract infection. Thank you much for this interesting consultation. It is reasonable to obtain Physical Therapy evaluation of gait while she is in the hospital. Dictated By: Steev Moralez MD /theresa/nathalia /Document#: [id number] ALBERTO
[2017-07-24] MEDS: ACCU-CHEK XX SCH (02:00)
[2017-07-24 07:52] LABS: BASOPHILS % 0.3 % (0.0-2.0); EOSINOPHILS # 0.2 10^3/ul (0.0-0.5); HEMATOCRIT 42.9 % (37.0-47.0); HEMOGLOBIN 14.1 g/dl (12.0-16.0); LYMPHOCYTES # 2.6 10^3/ul (0.8-2.9); LYMPHOCYTES % 42.9 % (15.0-51.0); MEAN CORPUSCULAR HEMOGLOBIN 29.7 pg (29.0-33.0); MEAN CORPUSCULAR HGB CONC 32.9 g/dl (32.0-37.0); MEAN CORPUSCULAR VOLUME 90.5 fl (82.0-101.0); MEAN PLATELET VOLUME 11.1 fl (7.4-10.4); MONOCYTE # 0.5 10^3/ul (0.3-0.9); MONOCYTES % 8.3 % (0.0-11.0); NEUTROPHIL # 2.7 10^3/ul (1.6-7.5); NEUTROPHILS % 45.2 % (39.0-77.0); PLATELET COUNT 143 10^3/UL (140-415); RED BLOOD COUNT 4.74 10^6/ul (4.20-5.40); RED CELL DISTRIBUTION WIDTH 13.6 % (11.5-14.5)
[2017-07-24] MEDS: INSULIN ASPART [NOVOLOG] 3 ML PEN SC SCH ×2 (08:00→12:00)
[2017-07-24 08:17] LABS: CREATININE 0.64 mg/dl (0.44-1.00); POTASSIUM 4.4 mmol/L (3.5-5.1)
[2017-07-24] MEDS: ALPRAZOLAM 0.25 MG TAB PO SCH (08:42)
[2017-07-24] MEDS: ASPIRIN 81 MG TAB PO SCH (08:42)
[2017-07-24] MEDS: METOPROLOL 50 MG TAB PO SCH (08:43)
[2017-07-24] MEDS: HEPARIN 5,000 UNIT/0.5 ML VIAL SC SCH (08:45)
--- NOTE | 2017-07-24 11:04 | PN ---
Date/Time of Note Date/Time of Note DATE: 07/24/17 TIME: 11:03 Assessment/Plan VTE Prophylaxis VTE Prophylaxis Intervention: SCD's Lines/Catheters IV Catheter Type (from [facility], [place]): Saline Lock Urinary Cath still in place: No Assessment/Plan Assessment/Plan 1. Reported weakness. MRI of the brain is pending. Rule out CVA. Follow-up on 2D echo. Of note patient did have carotid Doppler ultrasound done on 2011 that showed no hemodynamically significant stenosis. Will monitor for now. Continue on antiplatelet and statin medication. Physical therapy to follow. Neurologist follow-up as well. 2. Essential hypertension. Continue antihypertensives and adjust needed. 3. Diabetes. Continue insulin regimen. d/c home today if cleared by neurology Subjective 24 Hr Interval Summary Free Text/Dictation doing ok, bp stable, MRI negative Exam/Review of Systems Vital Signs Vitals Vital Signs Date Time Temp Pulse Resp B/P Pulse Ox O2 Delivery O2 Flow Rate FiO2 07/24/17 08:19 59 07/24/17 07:47 98.2 18 144/84 96 07/22/17 21:00 Room Air Exam Constitutional: alert, oriented Psych: anxiety Respiratory: clear to auscultation, normal air movement Cardiovascular: regular rate and rhythm Gastrointestinal: non-tender, soft Musculoskeletal: other (pain on palpation of bilateral lower extremities. patient reports hx arthritis ) Neurological: VALVE GRINDER II-XII intact, nl mental status, nl speech Skin: nl turgor Results Result Diagram: 07/24/17 0705 07/24/17 0705 Results 24 hrs Laboratory Tests Test 07/23/17 12:11 07/23/17 17:20 07/23/17 20:38 07/24/17 07:05 Bedside Glucose 112 118 122 White Blood Count 6.0 Red Blood Count 4.74 Hemoglobin 14.1 Hematocrit 42.9 Mean Corpuscular Volume 90.5 Mean Corpuscular Hemoglobin 29.7 Mean Corpuscular Hemoglobin Concent 32.9 Red Cell Distribution Width 13.6 Platelet Count 143 Mean Platelet Volume 11.1 H Neutrophils % 45.2 Lymphocytes % 42.9 Monocytes % 8.3 Eosinophils % 3.0 Basophils % 0.3 Nucleated Red Blood Cells % 0.0 Neutrophils # 2.7 Lymphocytes # 2.6 Monocytes # 0.5 Eosinophils # 0.2 Basophils # 0.0 Nucleated Red Blood Cells # 0.0 Sodium Level 140 Potassium Level 4.4 Chloride Level 105 Carbon Dioxide Level 27 Anion Gap 12 Blood Urea Nitrogen 15 Creatinine 0.64 Glucose Level 134 Calcium Level 9.0 Test 07/24/17 08:40 Bedside Glucose 130 Medications Medications Current Medications Aspirin (Aspirin) 81 mg DAILY PO Last administered on 07/24/17 08:42; Admin Dose 81 MG; Start 07/23/17 at 09:00 Diagnostic Test (Pha) (Accu-Chek) 1 ea 02 XX ; Start 07/23/17 at 02:00 Insulin Glargine (Lantus) 10 unit QHS SC Last administered on 07/23/17 20:49; Admin Dose 10 UNIT; Start 07/23/17 at 21:00 Heparin Sodium (Porcine) (Heparin (5000 Units/0.5 ml)) 5,000 unit Q12 SC Last administered on 07/24/17 08:45; Admin Dose 5,000 UNIT; Start 07/23/17 at 09:00 Miscellaneous Information 1 ea NOTE XX ; Start 07/22/17 at 23:30 Glucose (Glutose) 15 gm Q15M PRN PO DECREASED GLUCOSE; Start 07/22/17 at 23:30 Glucose (Glutose) 22.5 gm Q15M PRN PO DECREASED GLUCOSE; Start 07/22/17 at 23: 30 Dextrose (D50w Syringe) 25 ml Q15M PRN IV DECREASED GLUCOSE; Start 07/22/17 at 23:30 Dextrose (D50w Syringe) 50 ml Q15M PRN IV DECREASED GLUCOSE; Start 07/22/17 at 23:30 Glucagon (Glucagen) 1 mg Q15M PRN IM DECREASED GLUCOSE; Start 07/22/17 at 23:30 Glucose (Glutose) 15 gm Q15M PRN BUCCAL DECREASED GLUCOSE; Start 07/22/17 at 23 :30 Alprazolam (Xanax) 0.25 mg Q12 PO Last administered on 07/24/17 08:42; Admin Dose 0.25 MG; Start 07/23/17 at 21:00 Benazepril HCl (Lotensin) 5 mg HS PO Last administered on 07/23/17 20:40; Admin Dose 5 MG; Start 07/23/17 at 21:00 Meclizine HCl (Antivert) 12.5 mg Q8H PRN PO vertigo; Start 07/23/17 at 10:00 Metoprolol Tartrate (Lopressor) 50 mg BID PO Last administered on 07/24/17 08: 43; Admin Dose 50 MG; Start 07/23/17 at 21:00 Zolpidem Tartrate (Ambien) 5 mg QHS PRN PO INSOMNIA; Start 07/23/17 at 10:00 Atorvastatin Calcium (Lipitor) 40 mg HS PO Last administered on 07/23/17 20:39 ; Admin Dose 40 MG; Start 07/23/17 at 21:00 Acetaminophen (Tylenol Tab) 650 mg Q6H PRN PO PAIN AND OR ELEVATED TEMP Last administered on 07/23/17 15:46; Admin Dose 650 MG; Start 07/23/17 at 16:00 ROSETTA GROVES MD Jul 24, 2017 11:04
--- NOTE | 2017-07-24 11:05 | PDOCDIS ---
Discharge Instructions CONDITION Patient Condition: Good HOME CARE INSTRUCTIONS: Special Diet: LOW FAT LOW CHOL CARB CONTROLLED ACTIVITY: Activity Restrictions: Slowly Increase Activity Rest between Activity Avoid heavy lifting Avoid Heavy Housework FOLLOW UP/APPOINTMENTS Follow-up Plan follow up with her own PCP in 1-2 week after dischareg. follow up with in 2-3 week after discharge ROSETTA GROVES MD Jul 24, 2017 11:05
--- NOTE | 2017-07-24 11:12 | DS ---
Date/Time of Note Date/Time of Note DATE: 07/24/17 TIME: 11:12 Discharge Summary Admission/Discharge Info Admit Date/Time Jul 22, 2017 at 21:13 Discharge Date/Time Jul Discharge Diagnosis 1. TIA, MRI neagitve for acute CVA 2. Essential hypertension. Continue antihypertensives and adjust needed. 3. Diabetes. Patient Condition: Good Consults Neurology consult Procedures MRI brain negative for acute CVA Caroid doppler US Hx of Present Illness This is an 86-year-old female with a history of hypertension and diabetes who was brought to the ER for generalized weakness. Patient is accompanied by her daughter who was at the bedside and provided history. Per daughter, patient's have been able to take care of herself and was fully independent until 2 days ago. About 2 days ago, patient started complaining of feeling weak and had difficulty with walking requiring assistance. She said her weakness is generalized, including both bilateral upper and bilateral lower extremities. On further questioning however, she did report her right hand was more numb and weak as compared to the rest of her extremities. Did report some headache but denied visual disturbance, chest pain, shortness of breath, lightheadedness, seizure-like activity. When she presented to the ER, head CT was negative for any acute processes. Basic labs within acceptable range and blood pressure was not severely elevated upon presentation. Of note patient was admitted here for altered mentation in 2011 and at that time she had an MRI of the brain which was normal and carotid Doppler ultrasound was also without hemodynamically significant stenosis. Hospital Course Assessment and plan 1. Reported weakness. MRI of the brain is pending. Rule out CVA. Follow-up on 2D echo. Of note patient did have carotid Doppler ultrasound done on 2011 that showed no hemodynamically significant stenosis. Will monitor for now. Continue on antiplatelet and statin medication. Physical therapy to follow. Neurologist follow-up as well. 2. Essential hypertension. Continue antihypertensives and adjust needed. 3. Diabetes. Continue insulin regimen. Disposition and plan. Physical therapy to follow. Follow-up on brain imaging. Neurologist to follow as well. Discussed plan with [place] Meds Reported Medications Bacillus Coagulans (Probiotic) 1 Each Capsule.dr, 1 EACH PO 07/22/17 Multivits-Min/Iron/FA/Lutein (Centrum Silver Women Tablet) 1 Each Tablet, 1 EACH PO, TAB 07/22/17 Zolpidem Tartrate* (Zolpidem Tartrate*) 5 Mg Tablet, 5 MG PO QHS Y for INSOMNIA , #30 TAB 07/22/17 Alprazolam* (Alprazolam*) 0.25 Mg Tablet, 0.25 MG PO Q12 for ANXIETY, TAB 07/22/17 Ketoprofen (Ketoprofen) 75 Mg Capsule, 75 MG PO BID 01/28/12 Meclizine Hcl (Meclizine Hcl) 12.5 Mg Tablet, 12.5 MG PO Q8 Y PRN Q8 HRS FOR DIZZINES 01/28/12 Metoprolol Tartrate* (Lopressor*) 50 Mg Tablet, 50 MG PO BID 01/28/12 Benazepril Hcl* (Benazepril Hcl*) 5 Mg Tablet, 5 MG PO HS 01/28/12 Metformin* (Glucophage*) 500 Mg Tab, 500 MG PO DAILY 01/28/12 Discontinued Reported Medications Methocarbamol* (Methocarbamol*) 500 Mg Tablet, 500 MG PO BID Y 01/28/12 Alendronate Sodium* (Fosamax*) 70 Mg Tablet, 70 MG PO QWEEKLY 01/28/12 Omeprazole* (Omeprazole*) 20 Mg Capsule.dr 20 MG PO DAILY 01/28/12 Follow-up Plan follow up with her own PCP in 1-2 week after dischareg. follow up with in 2-3 week after discharge Primary Care Provider Naresh Fonseca Time spent on discharge: > 30 minutes Pending Labs Laboratory Tests Test 07/23/17 12:11 07/23/17 17:20 07/23/17 20:38 07/24/17 07:05 Bedside Glucose 112mg/dL (70-220) 118mg/dL (70-220) 122mg/dL (70-220) White Blood Count 6.010^3/ul (4.8-10.8) Red Blood Count 4.7410^6/ul (4.20-5.40) Hemoglobin 14.1g/dl (12.0-16.0) Hematocrit 42.9% (37.0-47.0) Mean Corpuscular Volume 90.5fl (82.0-101.0) Mean Corpuscular Hemoglobin 29.7pg (29.0-33.0) Mean Corpuscular Hemoglobin Concent 32.9g/dl (32.0-37.0) Red Cell Distribution Width 13.6% (11.5-14.5) Platelet Count 61549^3/UL (140-415) Mean Platelet Volume 11.1fl (7.4-10.4) Neutrophils % 45.2% (39.0-77.0) Lymphocytes % 42.9% (15.0-51.0) Monocytes % 8.3% (0.0-11.0) Eosinophils % 3.0% (0.0-7.0) Basophils % 0.3% (0.0-2.0) Nucleated Red Blood Cells % 0.0/100WBC (0.0-0.0) Neutrophils # 2.710^3/ul (1.6-7.5) Lymphocytes # 2.610^3/ul (0.8-2.9) Monocytes # 0.510^3/ul (0.3-0.9) Eosinophils # 0.210^3/ul (0.0-0.5) Basophils # 0.010^3/ul (0.0-0.1) Nucleated Red Blood Cells # 0.010^3/ul (0.0-0.0) Sodium Level 140mmol/L (135-144) Potassium Level 4.4mmol/L (3.5-5.1) Chloride Level 105mmol/L (97-110) Carbon Dioxide Level 27mmol/L (21-31) Anion Gap 12 (8-16) Blood Urea Nitrogen 15mg/dl (7-20) Creatinine 0.64mg/dl (0.44-1.00) Glucose Level 134mg/dl (70-220) Calcium Level 9.0mg/dl (8.4-10.2) Test 07/24/17 08:40 Bedside Glucose 130mg/dL (70-220) Microbiology Date/Time Source Procedure Growth Status 07/23/17 20:45 Clean Catch Urine Urine Culture - Preliminary NO GROWTH AFTER 24 HOURS Resulted ROSETTA GROVES MD Jul 24, 2017 11:12
== END 2017-07-24 13:40 | disposition home health service (06) | DRG 69 ==
LOC: E/R 19:00 → MS4 21:13
PROVIDERS: ADMIT Internal Medicine; ATTEND Internal Medicine
DX: G45.9 Transient cerebral ischemic attack, unspecified (principal); E11.9 Type 2 diabetes mellitus without complications; N39.0 Urinary tract infection, site not specified; I10 Essential (primary) hypertension; R27.8 Other lack of coordination; R53.1 Weakness; Z79.4 Long term (current) use of insulin; Z79.84 Long term (current) use of oral hypoglycemic drugs
CPT/HCPCS: 36415; 70450; 70551; 71010; 80048; 80061; 80307; 81001; 82962; 83036; 84484; 85025; 85610; 85730; 87086; 92610; 93005; 93306; 97116; 97161; J1644; J1815; J7030